=== PATIENT | male | born 1965 | race Caucasian/White ===

== ENCOUNTER 2016-09-17 01:23 | Emergency (ER) | payer MEDICARE, OTHER | END 2016-09-17 04:25 | disposition home or self-care (01) | LOC: ER 01:23 | DX: R41.0 Disorientation, unspecified (principal); I10 Essential (primary) hypertension; F17.210 Nicotine dependence, cigarettes, uncomplicated; Z88.5 Allergy status to narcotic agent | CPT/HCPCS: 36415; 80307; G0480 ==

== ENCOUNTER 2016-10-23 22:46 | Emergency (ER) | payer MEDICARE, OTHER | END 2016-10-24 02:27 | disposition home or self-care (01) | LOC: ER 22:46 | DX: R07.89 Other chest pain (principal); I10 Essential (primary) hypertension; I25.2 Old myocardial infarction; F17.210 Nicotine dependence, cigarettes, uncomplicated; Z88.5 Allergy status to narcotic agent; Z79.899 Other long term (current) drug therapy | CPT/HCPCS: 36415 ==

== ENCOUNTER 2016-11-12 20:54 | Emergency (ER) | payer MEDICARE, OTHER | END 2016-11-12 23:48 | disposition left against medical advice (07) | LOC: ER 20:54 | DX: Z53.21 Procedure and treatment not carried out due to patient leaving prior to being seen by health care provider (principal) ==

== ENCOUNTER 2016-11-13 12:22 | Emergency (ER) | payer MEDICARE, OTHER | END 2016-11-13 14:21 | disposition home or self-care (01) | LOC: ER 12:22 | DX: S01.01XA Laceration without foreign body of scalp, initial encounter (principal); E78.5 Hyperlipidemia, unspecified; F17.200 Nicotine dependence, unspecified, uncomplicated; Z88.5 Allergy status to narcotic agent; Z23 Encounter for immunization; W22.8XXA Striking against or struck by other objects, initial encounter; Y92.69 Other specified industrial and construction area as the place of occurrence of the external cause; Y99.0 Civilian activity done for income or pay | CPT/HCPCS: 90471 ==